=== PATIENT | female | born 1980 | race American Indian/Alaskan Native ===

== ENCOUNTER 2017-08-13 03:54 | Emergency (ER) | payer MEDICARE, MEDICAID ==
[2017-08-13 04:18] VITALS: TEMP 97.9
[2017-08-13 04:23] VITALS: BP 128/79; PULSE 108; RESP 19; O2SAT 100
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
== END 2017-08-13 10:30 | disposition home or self-care (01) ==
LOC: ED 03:54 → MERGE 03:54 → ED 10:30
DX: S40.022A Contusion of left upper arm, initial encounter (principal); Y08.89XA Assault by other specified means, initial encounter; Y92.89 Other specified places as the place of occurrence of the external cause